=== PATIENT | female | born 1995 | race Caucasian/White ===

== ENCOUNTER 2017-09-18 13:50 | Day surgery (SDC) | payer OTHER ==
[~2017-09-18 13:50] MED LIST: CEFAZOLIN 1 GM INJ
[2017-09-18] MEDS ORDERED: LACTATED RINGER'S 1,000 ML IV* (15:00)
[2017-09-18] MEDS ORDERED: PROPOFOL 20 ML (17:05)
[2017-09-18] MEDS ORDERED: MEPERIDINE 100 MG INJ (17:05)
[2017-09-18] MEDS ORDERED: LIDOCAINE 2% (SDV) 5 ML INJ (17:05)
[2017-09-18] MEDS ORDERED: ONDANSETRON 4 MG INJ ×2 (17:06→18:13)
[2017-09-18] MEDS ORDERED: METOCLOPRAMIDE 10 MG INJ (17:06)
[2017-09-18] MEDS: BUPIVACAINE 0.5% (SDV) 30 ML INJ (17:37)
[2017-09-18] MEDS: ONDANSETRON 4 MG INJ IV (19:01)
== END 2017-09-18 19:23 | disposition home or self-care (01) ==
LOC: SDS 13:50
DX: M67.432 Ganglion, left wrist (principal)
CPT/HCPCS: 25111; 88304